=== PATIENT | male | born 1980 | race Caucasian/White ===

== ENCOUNTER 2023-05-18 14:15 | Outpatient (CLI) | payer MEDICAID | END 2023-05-18 23:59 | disposition critical access hospital (66) | LOC: EMS 14:15 | DX: R41.82 Altered mental status, unspecified (principal) | CPT/HCPCS: A0425; A0429; A0999 ==

== ENCOUNTER 2023-05-18 14:50 | Emergency (ER) | payer MEDICAID, OTHER ==
--- NOTE | 2023-05-18 14:55 | ED Physician Documentation ---
PD HPI OVERDOSE - Stated complaint Stated Complaint: OD - History obtained from History obtained from: Patient, EMS - History of Present Illness Timing - onset: Today Subtance(s) ingested: Single, Narcotic (he was with friends and they were smoking heroin. Unknwon if other meds mixed in, but not intended. Pt was noted to become unresponsive and apparently not breathing. CPR started and they gave narcan, with some improvement. First responders gave Narcan as well and did BVM. Pt awoke in a minute.) Associated symptoms: Resp arrest, Unresponsive Contributing factors: Accidental, Substance abuse Treatment [employer]: Narcan Similar symptoms before: Has not had sx before Review of Systems Constitutional: denies: Fever Nose: denies: Congestion Respiratory: denies: Cough GI: denies: Vomiting, Diarrhea PD PAST MEDICAL HISTORY - Past Medical History Cardiovascular: None Respiratory: None - Present Medications Home Medications: Ambulatory Orders Medication Instructions Recorded Confirmed No Known Home Medications 05/18/23 05/18/23 - Allergies Allergies/Adverse Reactions: Allergies Allergy/AdvReac Type Severity Reaction Status Date / Time No Known Drug Allergies Allergy Verified 05/18/23 15:08 PD ED PE NORMAL - Vitals Vital signs reviewed: Yes - General General: Alert and oriented X 3 (sleepy but rouses to tactile lightly or verbal. Opens eyes readily and answers questions. Sats and heart rate rmain good here. ), No acute distress, Well developed/nourished - HEENT HEENT: Atraumatic - Cardiac Cardiac: RRR, No murmur - Respiratory Respiratory: Clear bilaterally - Abdomen Abdomen: Soft, Non tender - Derm Derm: Normal color, Warm and dry - Extremities Extremities: Normal ROM s pain - Neuro Neuro: No motor deficit, No sensory deficit Results - Vitals Vitals: Vital Signs - 24 hr 05/18/23 05/18/23 05/18/23 15:01 15:06 17:06 Temperature 36.3 C L 36.3 C L Heart Rate 64 71 86 Respiratory 17 17 13 Rate Blood Pressure 137/93 H 107/67 104/64 O2 Saturation 97 100 100 05/18/23 17:39 Temperature 36.5 C Heart Rate 94 Respiratory 17 Rate Blood Pressure 101/58 L O2 Saturation 96 Oxygen O2 Source Room air - Labs Labs: Laboratory Tests 05/18/23 05/18/23 15:10 15:10 WBC 7.2 RBC 5.01 Hgb 14.0 Hct 44.5 MCV 88.8 MCH 27.9 MCHC 31.5 L RDW 14.6 Plt Count 297 MPV 9.0 Neut # (Auto) 5.1 Lymph # (Auto) 1.5 Trinity # (Auto) 0.4 Eos # (Auto) 0.1 Baso # (Auto) 0.0 Absolute Nucleated RBC 0.00 Nucleated RBC % 0.0 Sodium 137 Potassium 3.8 Chloride 104 Carbon Dioxide 28 Anion Gap 5.0 L BUN 15 Creatinine 0.8 Estimated GFR (MDRD) 105 Glucose 80 Calcium 9.5 Magnesium 1.8 Total Bilirubin 0.6 AST 17 ALT 16 Alkaline Phosphatase 73 Total Protein 7.6 Albumin 4.1 Globulin 3.5 Albumin/Globulin Ratio 1.2 Lipase 30 Salicylates < 1.5 Acetaminophen 0.3 Ethyl Alcohol < 10.0 PD Medical Decision Making - ED course Complexity details: reviewed results (basic labs are good. He has friend to ED and is with him. ), re-evaluated patient (he remains good sats, vitals, and easily rousable/resting for another 2 1/2 hours after arrival. Time for Narcan to wear off and resedation to occur if it were going to.I feel he is safe for discharge. ), considered differential (apparent overdose of heroin. I asked him a few times over the ED stay if he would like Detox/outpt treatment/ or other help with stopping the drug use and he said he wants to continue with the heroin use. So SW not consulted and we did give Narcan kit for discharge.), d/w patient Departure - Departure Disposition: 01 Home, Self Care Clinical Impression: Opiate overdose, Opioid use disorder Condition: Stable Instructions: ED Overdose Accidental Comments: You are doing well at this time. It seems that you should be okay. The Narcan has had time to wear off and you are still alert. Consideration would be's higher amount of the heroin than anticipated or there may have been other medication mixed in that compounded the sedative effect. However you did have poor respirations and overdose and it was improved with the Narcan. We are sending you home with a Narcan dose to have on hand. Of course the best preventative would be to stop using opiates and certainly to decrease the dosing from what you normally would. If you do decide you would want detox or treatment, there is a facility in [place] called [facility]. Their phone number is [phone]. You can call them at any time to arrange a intake if you so d esire treatment. There are other facilities as well. Be careful out there. People who have accidental overdoses of opiates have a high risk of dying from an overdose in the next year so be very careful about dosing and amounts. Forms: PCP List Discharge Date/Time: 05/18/23 17:40
[2023-05-18 15:21] LABS: BASOPHILS % (AUTO) 0.6 %; EOSINOPHILS # (AUTO) 0.1 10^3/uL (0.0-0.7); EOSINOPHILS % (AUTO) 1.3 %; HCT - HEMATOCRIT 44.5 % (42.0-52.0); LYMPHOCYTES # (AUTO) 1.5 10^3/uL (1.5-3.5); LYMPHOCYTES % (AUTO) 20.9 %; MEAN CORPUSCULAR HEMOGLOBIN 27.9 pg (27.0-31.0); MEAN CORPUSCULAR HGB CONC 31.5 g/dL (32.0-36.0); MEAN CORPUSCULAR VOLUME 88.8 fL (80.0-94.0); MONOCYTES # (AUTO) 0.4 10^3/uL (0.0-1.0); MONOCYTES % (AUTO) 5.8 %; NEUTROPHILS # (AUTO) 5.1 10^3/uL (1.5-6.6); NEUTROPHILS % (AUTO) 71.1 %; PLT - PLATELET COUNT 297 10^3/uL (130-450); RED BLOOD COUNT 5.01 10^6/uL (4.70-6.10); RED CELL DISTRIBUTION WIDTH 14.6 % (12.0-15.0); WHITE BLOOD COUNT 7.2 x10^3/uL (4.8-10.8)
[2023-05-18 15:37] LABS: ACETAMINOPHEN 0.3 ug/mL; ALBUMIN 4.1 g/dL (3.2-5.5); ALBUMIN/GLOBULIN RATIO 1.2 (1.0-2.2); ALKALINE PHOSPHATASE 73 IU/L (42-121); ALT ALANINE AMINOTRANSFERASE 16 IU/L (10-60); AST ASPARTATE AMINOTRANSFERASE 17 IU/L (10-42); BILIRUBIN,TOTAL 0.6 mg/dL (0.2-1.0); BUN - BLOOD UREA NITROGEN 15 mg/dL (6-20); CALCIUM 9.5 mg/dL (8.5-10.3); CARBON DIOXIDE - CO2 28 mmol/L (21-32); CHLORIDE 104 mmol/L (101-111); CREATININE 0.8 mg/dL (0.6-1.3); ETOH - ETHANOL < 10.0 mg/dL; GFR - MDRD 105 (>89); GLUCOSE 80 mg/dL (74-104); LIPASE 30 U/L (11-82); MAGNESIUM 1.8 mg/dL (1.7-2.3); POTASSIUM 3.8 mmol/L (3.5-4.5); SODIUM 137 mmol/L (135-145); TOTAL PROTEIN 7.6 g/dL (6.4-8.9)
[2023-05-18 16:13] LABS: SALICYLATE < 1.5 mg/dL
[2023-05-18 17:44] VITALS: BP 101/58; O2SAT 96
== END 2023-05-18 17:40 | disposition home or self-care (01) ==
LOC: ED 14:50
DX: T40.604A Poisoning by unspecified narcotics, undetermined, initial encounter (principal); F11.90 Opioid use, unspecified, uncomplicated
CPT/HCPCS: 36415; 80053; 80143; 80179; 82077; 83690; 83735; 85025; 99284